=== PATIENT | male | born 2000 | race Two or more races ===

== ENCOUNTER 2021-05-17 08:00 | Outpatient (CLI) | payer OTHER ==
[2021-05-17] MEDS ORDERED: INTESTINEX680 M1 PO (13:16)
[2021-05-17] MEDS ORDERED: KETO10TA2 PO (13:16)
[2021-05-17] MEDS ORDERED: AMOX-CLAV 875-1 EAC1 PO (13:16)
[2021-05-17] MEDS ORDERED: MUPIROCIN1 G1 TOP (13:16)
[2021-05-17] MEDS ORDERED: CYCLOBENZAPRINE10 MG PO (13:16)
[2021-05-17] MEDS ORDERED: [UNRECOGNIZED DRUG - OTHER] (13:18)
== END 2021-05-17 08:30 | disposition home or self-care (01) ==
LOC: PPH VACUNA 08:00
DX: Z23 Encounter for immunization (principal)

== ENCOUNTER 2021-05-17 10:02 | Emergency (ER) | payer OTHER ==
[~2021-05-17] VITALS: Ht 172.7 cm; Wt 63.5 kg
[2021-05-17] MEDS ORDERED: KETO10TA2 PO (13:16)
[2021-05-17] MEDS ORDERED: AMOX-CLAV 875-1 EAC1 PO (13:16)
[2021-05-17] MEDS ORDERED: INTESTINEX680 M1 PO (13:16)
[2021-05-17] MEDS ORDERED: CYCLOBENZAPRINE10 MG PO (13:16)
[2021-05-17] MEDS ORDERED: MUPIROCIN1 G1 TOP (13:16)
[2021-05-17] MEDS ORDERED: [UNRECOGNIZED DRUG - OTHER] (13:18)
== END 2021-05-17 13:29 ==
LOC: ER 10:02
DX: S20.411A Abrasion of right back wall of thorax, initial encounter (principal); S50.311A Abrasion of right elbow, initial encounter; S80.211A Abrasion, right knee, initial encounter; V00.131A Fall from skateboard, initial encounter; Y93.89 Activity, other specified; Y92.413 State road as the place of occurrence of the external cause